=== PATIENT | female | born 1980 | race African-American/Black ===

== ENCOUNTER 2024-10-15 01:33 | Emergency (ER) | payer SELFPAY ==
[2024-10-15 01:41] VITALS: PULSE 80; RESP 18; O2SAT 100
== END 2024-10-15 18:42 | disposition home or self-care (01) ==
LOC: ER 01:33
DX: S60.851A Superficial foreign body of right wrist, initial encounter (principal); Z88.0 Allergy status to penicillin; W18.39XA Other fall on same level, initial encounter; Y93.89 Activity, other specified; Y92.89 Other specified places as the place of occurrence of the external cause; Y99.8 Other external cause status
CPT/HCPCS: 99284; Z7610 ×3